=== PATIENT | male | born 1975 | race Caucasian/White ===

== ENCOUNTER 2024-05-11 08:32 | Emergency (ER) | payer OTHER, SELFPAY ==
[2024-05-11 08:38] VITALS: BP 162/102
[2024-05-11 09:49] LABS: % Basophils 0.8 % (0-2); % Eosinophils 3.4 % (0-6); % Immature Granulocytes 1.5 % (0-0.5); % Lymphocytes 25.4 % (20.5-51.1); % Monocytes 8.2 % (1.7-9.3); % Neutrophils 60.7 % (42.2-75.2); Absolute Basophils 0.1 10^3/uL (0-0.2); Absolute Eosinophils 0.3 10^3/uL (0-0.7); Absolute Immature Granulocytes 0.1 10^3/uL (0-0.05); Absolute Monocytes 0.7 10^3/uL (0.1-0.6); Absolute Neutrophils 4.8 10^3/uL (1.4-6.5); Hematocrit 42.1 % (39.0-52.0); Hemoglobin 15.3 g/dL (13.0-18.0); Mean Corp Hgb Conc. 36.3 g/dL (33.0-37.0); Mean Corpuscular Hgb 30.4 pg (27.0-31.0); Mean Corpuscular Volume 83.5 fL (80.0-94.0); Mean Platelet Volume 9.5 fL (7.4-10.4); Nucleated Red Blood Cells % 0 % (-); Platelet Count 283 10^3/uL (130-400); Red Blood Cell Count 5.04 10^6/uL (4.70-6.10); Red Cell Dist. Width 13.3 % (11.5-14.5)
[2024-05-11] MEDS: NSS 1000 IV (09:49)
[2024-05-11] MEDS: ZOFRAN 4 MG IV ×2 (09:50→11:36)
[2024-05-11] MEDS: DILAUDID 0.5 MG IV ×2 (09:50→11:36)
--- NOTE | 2024-05-11 09:57 | ED.GENMED ---
History of Present Illness
<Germaine Vargas PA-C - Last Filed: 05/11/24 18:07>
General
Chief Complaint: Flank Pain
Source: patient
Exam Limitations: none
Time Seen by Provider: 05/11/24 09:17
Nursing documentation reviewed up to this point in time: agreed with
History of Present Illness
History of Present Illness:
48-year-old male with history of kidney stones presenting to the emergency department with acute onset left flank pain about 1.5 hours prior to arrival. He describes a dull ache in his left mid back rating around to his left abdomen. Patient
denies any radiation of pain into his legs. He has had some nausea and a few episodes of vomiting since onset of pain. Patient denies any fever, chills, chest pain, shortness of breath, urinary symptoms, or testicular pain.
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 No known inciting injury or trauma.
Patient states that he has had a few kidney stones in the past none in the past 5 years. He has required stent placement for 1 kidney stone around 1997.
Past History
<Germaine Vargas PA-C - Last Filed: 05/11/24 18:07>
Past History
ED Past Medical History: Other (Kidney stones)
ED Past Surgical History: Urological
Social History
Drug: None
Personal:
Review of Systems
<Germaine Vargas PA-C - Last Filed: 05/11/24 18:07>
Review of Systems
Allergies reviewed?: Yes
All Other Systems: ROS reviewed and negative except as documented in HPI and ROS
Phy Exam
<Germaine Vargas PA-C - Last Filed: 05/11/24 18:07>
Physical Exam
Physical Exam:
Vitals: Hypertensive, otherwise vital signs stable. Afebrile
General: Patient is mild distress due to pain.
Skin: Warm and dry, no rashes or lesions
Head: Normocephalic, atraumatic
Eyes: Sclera nonicteric. EOMs intact. No nystagmus.
Throat: Protecting airway
Neck: Normal ROM, no cervical spine tenderness, no meningismus
Cardiac: Regular rate and rhythm, no murmurs.
Pulm: Normal respiratory effort, no wheezes, rales, rhonchi heard on exam.
Abdomen: Abdomen soft. No abdominal tenderness. No CVA tenderness. No rash
Back: No midline spinal tenderness. No rash. Negative straight leg raise. No ecchymoses of bilateral flank.
Extremities: No evidence of cyanosis or edema. Great distal pulses
Neuro: AAOx3. CN II-XII intact. No focal neurologic deficits. Steady gait. Strength 5 out of 5 in upper and lower extremities. Sensation fully intact.
Psychiatric: Normal affect.
Course
<Germaine Vargas PA-C - Last Filed: 05/11/24 18:07>
Orders/Labs/Results
Orders:
Orders
05/11/24 09:35
Complete Blood Count/With Diff Urgent
Comprehensive Metabolic Panel Urgent
05/11/24 09:43
0.9% Sodium Chloride 1000 ml [Nss] 1,000 ml IV BOLUS
HYDROmorphone [Dilaudid] 0.5 mg IV NOW STA
Ondansetron Injectable [Zofran] 4 mg IV NOW STA
05/11/24 09:44
CT Abd/pel Without Iv Or Oral Urgent
Comment: hx kidney stones
Reason For Exam: acute onset left flank pain, +N
05/11/24 10:07
Ketorolac [Toradol] 15 mg IV NOW STA
05/11/24 10:11
Urinalysis Reflex To Culture Urgent
Date Specimen was Collected: 05/11/24
Time Specimen was Collected: 08:39
Urine Microscopic Reflex Cult Urgent
05/11/24 11:15
Vital Signs- Treatment ONCE
Frequency: Once
05/11/24 11:29
HYDROmorphone [Dilaudid] 0.5 mg IV NOW STA
Ondansetron Injectable [Zofran] 4 mg IV NOW STA
Abnormal Lab Results
05/11/24 05/11/24
09:35 10:11
Abs Immat Gran (auto) 0.1 H 10^3/uL
(0-0.05)
Absolute Monos (auto) 0.7 H 10^3/uL
(0.1-0.6)
Immature Gran % 1.5 H %
(0-0.5)
Glucose 156 H mg/dl
(70-99)
Calcium 10.3 H mg/dl
(8.4-10.2)
ALT 52 H U/L
(0-50)
Ur Occult Blood Reflex 4+ A
(Negative)
Leukocyte Esterase Rfl Trace A
(Negative)
Urine RBC 30-40 A /HPF
(0-2)
Urine Bacteria (Reflex) Few A
(Negative)
05/11/24 09:35
05/11/24 09:35
Vital Signs
Initial and Last Documented VS:
Initial Vital Signs
Temp Pulse Resp BP Pulse Ox
97.9 F 80 17 162/102 96
05/11/24 08:38 05/11/24 08:38 05/11/24 08:38 05/11/24 08:38 05/11/24 08:38
Last Documented Vital Signs
Temp Pulse Resp BP Pulse Ox
97.9 F 72 16 135/70 97
05/11/24 08:38 05/11/24 13:04 05/11/24 13:04 05/11/24 13:04 05/11/24 13:04
<Erich Guidry, DO - Last Filed: 05/11/24 11:28>
Orders/Labs/Results
Orders:
Orders
05/11/24 09:35
Complete Blood Count/With Diff Urgent
Comprehensive Metabolic Panel Urgent
05/11/24 09:43
0.9% Sodium Chloride 1000 ml [Nss] 1,000 ml IV BOLUS
HYDROmorphone [Dilaudid] 0.5 mg IV NOW STA
Ondansetron Injectable [Zofran] 4 mg IV NOW STA
05/11/24 09:44
CT Abd/pel Without Iv Or Oral Urgent
Comment: hx kidney stones
Reason For Exam: acute onset left flank pain, +N
05/11/24 10:07
Ketorolac [Toradol] 15 mg IV NOW STA
05/11/24 10:11
Urinalysis Reflex To Culture Urgent
Date Specimen was Collected: 05/11/24
Time Specimen was Collected: 08:39
Urine Microscopic Reflex Cult Urgent
05/11/24 11:15
Vital Signs- Treatment ONCE
Frequency: Once
05/11/24 11:29
HYDROmorphone [Dilaudid] 0.5 mg IV NOW STA
Ondansetron Injectable [Zofran] 4 mg IV NOW STA
Abnormal Lab Results
05/11/24 05/11/24
09:35 10:11
Abs Immat Gran (auto) 0.1 H 10^3/uL
(0-0.05)
Absolute Monos (auto) 0.7 H 10^3/uL
(0.1-0.6)
Immature Gran % 1.5 H %
(0-0.5)
Glucose 156 H mg/dl
(70-99)
Calcium 10.3 H mg/dl
(8.4-10.2)
ALT 52 H U/L
(0-50)
Ur Occult Blood Reflex 4+ A
(Negative)
Leukocyte Esterase Rfl Trace A
(Negative)
Urine RBC 30-40 A /HPF
(0-2)
Urine Bacteria (Reflex) Few A
(Negative)
05/11/24 09:35
05/11/24 09:35
Vital Signs
Initial and Last Documented VS:
Initial Vital Signs
Temp Pulse Resp BP Pulse Ox
97.9 F 80 17 162/102 96
05/11/24 08:38 05/11/24 08:38 05/11/24 08:38 05/11/24 08:38 05/11/24 08:38
Last Documented Vital Signs
Temp Pulse Resp BP Pulse Ox
97.9 F 72 16 135/70 97
05/11/24 08:38 05/11/24 13:04 05/11/24 13:04 05/11/24 13:04 05/11/24 13:04
<Germaine Vargas PA-C - Last Filed: 05/11/24 18:07>
MDM/Problems Addressed
Differential Diagnosis Includes:
Not limited to: Kidney stone, UTI, pyelonephritis, diverticulitis, muscular strain, zoster
MDM/Problems Addressed:
48-year-old male with history of kidney stones presenting with acute onset left flank pain earlier today. No known inciting injury or traumatic event. Mild associated nausea and vomiting. No fevers, chills, urinary symptoms. Patient hypertensive
on arrival likely due to significant discomfort. Otherwise his vital signs are stable. He is afebrile. Physical exam as above. Patient is in significant discomfort due to pain, hunched over. No reproducible tenderness to back, no CVA tenderness
or overlying rash, ecchymoses, or erythema. Does not appear to be musculoskeletal in origin. He has a negative straight leg raise bilaterally. Abdomen is soft and nontender. Heart regular rate and rhythm. Lungs clear bilaterally. Symptoms most
consistent with likely renal colic. Will treat patient's pain, check basic labs urine and get dry CAT scan of abdomen/pelvis. Will closely monitor and reassess.
Labs noted. No clinically significant abnormalities. Urine is positive for blood, although appears not infected. CT report reviewed. No evidence of obstructing calculi bilaterally. No evidence of left sided ureteral calculus or hydroureter.
There are nonobstructing large renal calculi noted in the right UPJ which is not consistent with patient's symptoms. Did discuss case with urology, Dr. Maxwell who reviewed patient's CT scan and confirms findings on report. No evidence of acute
left-sided pathology although stones noted in right UPJ will require urgent follow-up.
Patient's pain relatively well-controlled in emergency department. Symptoms most consistent with a renal colic of the left side�unsure if patient may have potentially passed stone. Do not suspect MSK origin. No evidence of rash suggest shingles.
Patient in no apparent respiratory distress to suggest cardio/pulmonary process. Vital signs remained stable. No indication for admission at this time. Will discharge patient with pain control and prompt follow-up with urology for right you UPJ
stone. Return precautions discussed with patient at length. Did speak with Dr. Maxwell who will see him in office by end of week. Patient seen and evaluate by attending physician, as well. Stable for discharge with pain control,, urology
follow-up
Chronic conditions affecting care:
History of kidney stone
Acute Exacerbation and/or Progression of Chronic Illness:
Renal colic
<Germaine Vargas PA-C - Last Filed: 05/11/24 18:07>
*Radiology
Radiology exam reviewed: preliminary read by ED provider and radiology read reviewed
*Pulse Oximetry
Patient hypoxic: no
*EKG
Interpreted by ED Provider?: NA
*County Surveyor Interpretation
Rate: County Surveyor- N/A
*Critical Care Note
Total Time (30-74mins, 75-104mins- exclusive of procedures): Not Applicable
<Germaine Vargas PA-C - Last Filed: 05/11/24 18:07>
Patient Management
Discussion with other providers: Or Manager (Urology-Dr. Maxwell)
ED Attending Note
<Germaine Vargas PA-C - Last Filed: 05/11/24 18:07>
-
Portions of this chart may have been created with voice recognition software.� Occasional wrong word or��sound alike� substitutions may have occurred due to the inherent limitations of voice recognition software.
<Erich Guidry DO - Last Filed: 05/11/24 11:28>
ED Attending Note
Patient seen and examined by attending physician: Yes
I performed the substantive portion of visit, reviewed & personally made and approve the management plan that is documented in note by myself or HILDA.: Yes
Discharge Plan
Departure
Patient Disposition: Home (Routine Discharge)
Date of Disposition: 05/11/24
Time of Disposition: 13:06
Patient with high blood pressure during this ER visit?: Yes
Condition: Good
Covid-19: Not Applicable
Discharge Problem:
Renal colic
Instructions: Kidney Stones (DC), Flank Pain (DC), BLOOD PRESSURE
Prescriptions:
New
oxycodone 5 mg tablet
5 mg PO Q6H PRN (Reason: Pain) Qty: 10 0RF
ondansetron 4 mg tablet,disintegrating
4 mg PO Q8H PRN (Reason: nausea and vomiting) Qty: 10 0RF
tamsulosin [Flomax] 0.4 mg capsule
0.4 mg PO DAILY Qty: 14 0RF
No Action
oxycodone-acetaminophen 5 MG/325 MG tablet
2 tab PO Q6HPRN PRN (Reason: pain) Qty: 30 0RF
indomethacin 75 MG capsule, extended release
75 mg PO DAILY Qty: 20 0RF
Rx Instructions:
Please take with food
Referrals:
Orlando,Concha, PA [Family Provider] -
Hermes Maxwell Jr., MD [Active] - Next open appointment
Activity Restrictions/Additional Instructions:
-RETURN TO THE EMERGENCY DEPARTMENT WITH ANY FEVERS, CHILLS, SEVERE ABDOMINAL/BACK PAIN, INTRACTABLE NAUSEA/VOMITING, SHORTNESS OF BREATH/CHEST PAIN, WORSENING IN CURRENT SYMPTOMS, OR ANY OTHER CONCERNS
-You should take 600 mg of ibuprofen every 6-8 hours as needed for pain. For very severe pain�you can take oxycodone. This will cause drowsiness you should not take prior to driving. You can take Tylenol as needed, as well.
-Is important stay well-hydrated. You should strain your urine.
-As discussed�it is very importantly follow-up with urology. You should contact Dr. Maxwell today when you leave the hospital to arrange follow-up in his office later this week.
-Your prescriptions have been to the pharmacy.
Monitor your symptoms closely and return to the emergency department any acute worsening/new symptoms or any signs of infection.
Interventions
Interventions:
*General Assessment Last Done: 05/11/24 13:45
*Nursing Disposition Last Done: 05/11/24 13:45
OC-Rndhav-Xgydhgygss Assessment Last Done: 05/11/24 09:30
ED-Male Genitourinary Assessment Last Done: 05/11/24 09:56
Discharge Date and Time
Discharge Date/Time: 05/11/24 13:45
Print Language: NIUEAN
[2024-05-11 10:09] LABS: ALT (SGPT) 52 U/L (0-50); AST (SGOT) 52 U/L (17-59); Albumin 4.9 g/dl (3.5-5.0); Alkaline Phosphatase 83 U/L (38-126); Blood Urea Nitrogen 18 mg/dl (9-20); Calcium 10.3 mg/dl (8.4-10.2); Carbon Dioxide 24 mmol/L (22-30); Chloride 105 mmol/L (98-107); Glucose 156 mg/dl (70-99); Potassium 4.6 mmol/L (3.5-5.1); Sodium 140 mmol/L (135-145); Total Bilirubin 0.7 mg/dl (0.2-1.3); Total Protein 7.5 g/dl (6.3-8.2); eGFR > 60.00
[2024-05-11] MEDS: TORADOL 15 MG IV (10:12)
[2024-05-11 10:50] LABS: Urine Albumin Trace (Neg - Trace); Urine Bilirubin Negative (Negative); Urine Character Clear (Clear); Urine Color Yellow; Urine Glucose Negative (Negative); Urine Ketone Negative (Negative); Urine Leukocyte Trace (Negative); Urine Nitrite Negative (Negative); Urine Occult Blood 4+ (Negative); Urine Urobilinogen Negative (Neg - 1+)
[2024-05-11 11:35] VITALS: BP 138/91
[2024-05-11 11:51] LABS: Urine Bacteria Few (Negative); Urine Red Blood Cell 30-40 /HPF (0-2)
[2024-05-11 13:04] VITALS: BP 135/70
== END 2024-05-11 13:45 | disposition home or self-care (01) ==
LOC: EMR 08:32
PROVIDERS: EMERGENCY PHYSICIAN Emergency Medicine; FAMILY PHYSICIAN Physician Assistant Medical
DX: N20.0 Calculus of kidney (principal); Z87.442 Personal history of urinary calculi; Z91.048 Other nonmedicinal substance allergy status
CPT/HCPCS: 99284; 96374; 96375 ×2; 96361; 96376 ×2; 74176; 80053; 81003; 81015; 85025

== ENCOUNTER 2024-05-25 01:30 | Inpatient (IN) | payer OTHER, SELFPAY ==
[2024-05-24 19:06] VITALS: BP 172/99
[2024-05-24] MEDS: MORPHINE SULFATE 4 MG IV (21:33)
[2024-05-24 21:39] LABS: % Basophils 0.6 % (0-2); % Eosinophils 1.7 % (0-6); % Immature Granulocytes 0.6 % (0-0.5); % Lymphocytes 10.7 % (20.5-51.1); % Monocytes 6.2 % (1.7-9.3); % Neutrophils 80.2 % (42.2-75.2); Absolute Basophils 0.1 10^3/uL (0-0.2); Absolute Eosinophils 0.2 10^3/uL (0-0.7); Absolute Immature Granulocytes 0.1 10^3/uL (0-0.05); Absolute Lymphocytes 1.2 10^3/uL (1.2-3.4); Absolute Monocytes 0.7 10^3/uL (0.1-0.6); Absolute Neutrophils 9.3 10^3/uL (1.4-6.5); Hemoglobin 14.6 g/dL (13.0-18.0); Mean Corp Hgb Conc. 36.5 g/dL (33.0-37.0); Mean Corpuscular Hgb 29.9 pg (27.0-31.0); Mean Corpuscular Volume 81.8 fL (80.0-94.0); Mean Platelet Volume 9.3 fL (7.4-10.4); Nucleated Red Blood Cells % 0 % (-); Platelet Count 274 10^3/uL (130-400); Red Blood Cell Count 4.89 10^6/uL (4.70-6.10); White Blood Cell Count 11.6 10^3/uL (4.8-10.8)
[2024-05-24] MEDS: TORADOL 15 MG IV (22:13)
[2024-05-24 22:21] LABS: ALT (SGPT) 39 U/L (0-50); AST (SGOT) 36 U/L (17-59); Albumin 4.3 g/dl (3.5-5.0); Alkaline Phosphatase 69 U/L (38-126); Blood Urea Nitrogen 19 mg/dl (9-20); Calcium 8.9 mg/dl (8.4-10.2); Carbon Dioxide 24 mmol/L (22-30); Chloride 106 mmol/L (98-107); Glucose 168 mg/dl (70-99); Potassium 4.4 mmol/L (3.5-5.1); Sodium 141 mmol/L (135-145); Total Bilirubin 0.7 mg/dl (0.2-1.3); Total Protein 6.9 g/dl (6.3-8.2); eGFR > 60.00
[2024-05-24 22:28] LABS: Urine Albumin Trace (Neg - Trace); Urine Bilirubin Negative (Negative); Urine Character Clear (Clear); Urine Color Yellow; Urine Glucose Negative (Negative); Urine Ketone Negative (Negative); Urine Leukocyte Negative (Negative); Urine Nitrite Negative (Negative); Urine Occult Blood 3+ (Negative); Urine Specific Gravity 1.025 (<1.030); Urine Urobilinogen Negative (Neg - 1+)
[2024-05-24 22:37] LABS: Urine Squamous Cell 0-2 /LPF (Few)
[2024-05-24 22:40] LABS: Urine Uric Acid Crystals Present; Urine White Cell 0-2 /HPF (0-5)
[2024-05-24 22:41] LABS: Urine Bacteria Moderate (Negative)
[2024-05-24 22:55] VITALS: BP 143/79
[2024-05-24 22:56] VITALS: BMI 36.6
--- NOTE | 2024-05-24 23:10 | ED.GENMED ---
History of Present Illness
General
Chief Complaint: Flank Pain
Time Seen by Provider: 05/24/24 21:16
History of Present Illness
History of Present Illness:
48-year-old male with prior history of kidney stones presenting to the emergency department for right-sided flank pain. Patient notes that he was seen in the hospital about on 05/11 for left-sided flank pain, suspected to have passed a kidney stone.
Imaging was obtained which showed a 1.2 cm stone in his right renal pelvis. He subsequently followed up with urology, and given size, is scheduled for lithotripsy in [address] Maxwell. Prior to arrival, patient had acute onset of right-sided
flank pain with radiation to his abdomen. He had previously not been having any pain. He denies any changes in urination. He denies any fever. He did not take any medications for pain prior to arrival. He denies additional acute medical
complaints
Past History
Past History
ED Past Medical History: Other (Kidney stones)
ED Past Surgical History: Urological
Social History
Drug: None
Personal:
Phy Exam
Physical Exam
Physical Exam:
General: Well-appearing, no clinical signs of dehydration, nontoxic and in no acute distress
HEENT: protecting airway
Neck: appears supple
CV: Normal heart rate, regular rhythm
Resp: No accessory muscle use, no increased work of breathing, lungs clear to auscultation bilaterally
Abd: Soft and non-distended, no tenderness to palpation, right CVA tenderness
Extremities: No deformities, no swelling
Neuro: alert, no focal neurologic deficit
: deferred
Rectal: deferred
Psych: Normal affect
Skin: Intact
Course
Orders/Labs/Results
Orders:
Orders
05/24/24 21:24
Morphine Sulfate 4 mg IV NOW STA
05/24/24 21:34
Complete Blood Count/With Diff Urgent
Comprehensive Metabolic Panel Urgent
05/24/24 21:57
CT Abd/pel Without Iv Or Oral Urgent
Comment:
Reason For Exam: R-flank pain, known renal stone
05/24/24 22:06
Ketorolac [Toradol] 15 mg IV NOW STA
05/24/24 22:16
Urinalysis Reflex To Culture Urgent
Date Specimen was Collected: 05/24/24
Time Specimen was Collected: 22:15
Urine Microscopic Reflex Cult Urgent
Urine Culture Urgent
PRASANNA Source: U
Specimen Description:
Date Specimen was Collected: 05/24/24
Time Specimen was Collected: 22:15
05/24/24 23:45
HYDROmorphone [Dilaudid] 1 mg IV NOW STA
Abnormal Lab Results
05/24/24 05/24/24
21:34 22:16
WBC 11.6 H 10^3/uL
(4.8-10.8)
Abs Immat Gran (auto) 0.1 H 10^3/uL
(0-0.05)
Absolute Neuts (auto) 9.3 H 10^3/uL
(1.4-6.5)
Absolute Monos (auto) 0.7 H 10^3/uL
(0.1-0.6)
Immature Gran % 0.6 H %
(0-0.5)
Neutrophils % 80.2 H %
(42.2-75.2)
Lymphocytes % 10.7 L %
(20.5-51.1)
Glucose 168 H mg/dl
(70-99)
Ur Occult Blood Reflex 3+ A
(Negative)
Urine RBC 7-10 A /HPF
(0-2)
Urine Bacteria (Reflex) Moderate A
(Negative)
05/24/24 21:34
05/24/24 21:34
Vital Signs
Initial and Last Documented VS:
Initial Vital Signs
Temp Pulse Resp BP Pulse Ox
97.6 F 61 19 172/99 96
05/24/24 19:06 05/24/24 19:06 05/24/24 19:06 05/24/24 19:06 05/24/24 19:06
Last Documented Vital Signs
Temp Pulse Resp BP Pulse Ox
97.6 F 71 14 143/79 97
05/24/24 19:06 05/24/24 22:55 05/24/24 22:55 05/24/24 22:55 05/24/24 22:55
MDM/Problems Addressed
MDM/Problems Addressed:
48-year-old male with known history of kidney stones presenting for right-sided flank pain, acute onset. Vital signs on arrival are significant for hypertension which improved without intervention.
On exam, patient is in no acute distress, slightly uncomfortable secondary to pain. On review of EMR, patient had CT imaging on the , consistent with a 1.2 cm stone in the right renal pelvis. Given this information, suspect that stone is
moving, which is likely source of patient's pain. Will try to control patient's pain, screen with laboratory analysis and urinalysis to ensure no infectious concerns. Will also obtain imaging to evaluate location of stone and degree of
hydronephrosis.
23:45 -patient's urine without significant sign of infection. Mild leukocytosis. CT is consistent with a 12 mm stone which is now traveling down the ureter. Patient's pain is persistent despite multiple pain medications. For this reason we will
admit for pain control and urologic consultation.
*Critical Care Note
Total Time (30-74mins, 75-104mins- exclusive of procedures): Not Applicable
ED Attending Note
-
Portions of this chart may have been created with voice recognition software.� Occasional wrong word or��sound alike� substitutions may have occurred due to the inherent limitations of voice recognition software.
Discharge Plan
Departure
Prescriptions:
No Action
No Current Medications
0
Referrals:
Arsh Stapleton, [Family Provider] -
Interventions
Interventions:
*Risk Screen - Suicide Last Done: 05/24/24 19:06
*General Assessment Last Done: 05/24/24 19:06
*Neglect/Abuse Screening Last Done: 05/24/24 19:06
*ED COVID-19 Vaccine History Last Done: 05/24/24 19:06
VZ-Hlvyhd-Mdaxcruftw Assessment Last Done: 05/24/24 20:50
ED-Male Genitourinary Assessment Last Done: 05/24/24 20:50
Discharge Date and Time
Print Language: JAPANESE
[2024-05-24] MEDS: DILAUDID 1 MG IV (23:50)
[2024-05-25] VITALS (18 sets, daily range): BP systolic 105–147; BP diastolic 60–94; BMI 36.6
--- NOTE | 2024-05-25 00:54 | HPS.HSE ---
Family Physician
-
Family Physician: Arsh Stapleton
Chief Complaint
-
R Flank Pain
History of Present Illness
Patient is a 48y M with PMH significant for nephrolithiasis who presents to ED complaining of R flank pain. Patient was seen here in the ED about 2 weeks ago with LEFT flank pain. evaluation at that time showed R kidney stone and patient
followed up with urology as an outpatient. He was scheduled for cysto / stent on of this week. Today, he noted onset of severe R flank pain with radiation into the R groin. He had nausea but no emesis. No fevers / chills.
Patient reports prior episode of ureteral stone / sepsis in the . He required cysto / stent at that time.
Medical History
Past Medical History
Past Medical History: Reports Other
Additional Past Medical History:
Kidney Stones
Past Surgical History: Reports Other
Additional Past Surgical History:
Cysto / Stent
Left Ankle ORIF with Hardware
Social History
Tobacco: Non-smoker
Alcohol: None
Drug: None
Family History
Family History: Not pertinent
Allergies / Home Medications
Allergies reflects when Allergies were last updated in [facility].
Home Medications with original date entered in [facility]
Allergy/Medication List:
Allergies
Allergy/AdvReac Type Severity Reaction Status Date / Time
grass pollen-[place], Allergy Unknown Verified 05/24/24 19:06
standard
[Grass Pollen-[place],
Standard]
Home Medications
No Meds [No Current Medications] 05/23/24
Review of Systems
-
History Source: Patient
A 12 point ROS was completed and negative except as noted: Yes
Constitutional: Denies Fever, Fatigue or Chills
Respiratory: Denies Cough or Trouble Breathing
Cardiac: Denies Chest Pain or Palpitations
Abdomen/GI: Reports Nausea; Denies Abdominal Pain, Vomiting, Diarrhea or Constipated
: Reports Flank Pain; Denies Dysuria, Frequency or Bleeding
Musculoskeletal: Denies Edema
Neurological: Denies Dizzy or Headache
Physical Exam
Vital Signs
Vital Signs
Temp Pulse Resp BP Pulse Ox
97.6 F 71 14 143/79 97
05/24/24 19:06 05/24/24 22:55 05/24/24 22:55 05/24/24 22:55 05/24/24 22:55
Physical Exam
General: Other (48y M in no acute distress.)
HEENT: Moist mucous membranes and PERRLA
Respiratory: Clear; No Wheezes, Rales or Rhonchi
Cardiac: S1/S2 and Regular Rhythm; No Murmur
GI: Soft, Non Distended, Normal Bowel Sounds and Other (Mild R abdominal tenderness. No rebound / guarding.)
Musculoskeletal: No Clubbing, No Cyanosis and No Edema
Neuro: AO x 3
Laboratory Results
-
05/24/24 21:34
05/24/24 21:34
Laboratory Results
Total Bilirubin 0.7 mg/dl (0.2-1.3) 05/24/24 21:34
AST 36 U/L (17-59) 05/24/24 21:34
ALT 39 U/L (0-50) 05/24/24 21:34
Alkaline Phosphatase 69 U/L (38-126) 05/24/24 21:34
Impression/Plan
-
A/P: Patient is a 48y M with PMH significant for nephrolithiasis who presents to ED c/o severe R flank pain and known R ureteral stone.
Obstructing Right Ureteral Stone
- Admit for further evaluation and treatment.
- NPO, IVFs, pain control, tamsulosin, etc.
- Urology consulted for probable cysto / stent in the AM.
- Empiric abx for now pending culture data - though urine does not appear infected and patient is non-toxic.
No chronic health issues / meds / etc.
DVT Prophylaxis: SCDs
Code Status: Full
[2024-05-25] MEDS: DILAUDID 0.5 MG IV ×2 (04:48→08:58)
[2024-05-25] MEDS: NSS 1000 IV ×3 (05:43→20:28)
--- NOTE | 2024-05-25 06:06 | CON.MD ---
Consultation - Medical
-
see dictated note and scanned H+P
pt with known large right renal stone burden
now with intractable right renal colic
no fevers or signs of infx
plan to keep npo and decide on timing of OR- pt is on for tomorrow and this may be as soon as OR allows
reviewed with patient
[2024-05-25] MEDS: TORADOL 15 MG IV ×3 (06:42→20:28)
--- NOTE | 2024-05-25 07:57 | PHANOTE ---
med rec note- patient said he never started the Flomax .04mg daily and prescription pain medication that were filled
[2024-05-25] MEDS: FLOMAX 0.4 MG PO (08:12)
[2024-05-25] MEDS: ROCEPHIN 1000 MG IV (08:13)
[2024-05-25] MEDS: STERILE WATER FOR INJECTION 10 ML IV (08:13)
[2024-05-25] MEDS: TYLENOL 650 MG PO (08:24)
--- NOTE | 2024-05-25 08:45 | W.PN.HOSP.TC ---
Today's Communication/Plan
-
See plan
Assessment / Plan
Assessment / Plan
Impression:
Renal colic with obstructive right ureteral stone.
Afebrile hemodynamically stable with preserved renal function
No clinical evidence of infection
Urology on board with plan for cystoscopy and stent placement.
Continue empiric antibiotics/ceftriaxone.
Continue IV fluids.
Continue analgesic regimen.
Anticipated Discharge: 24 - 48 hours
Subjective/Interval History
-
Date of Service: May 25, 2024
Objective Data
-
Labs:
Laboratory Results
05/24/24
21:34
WBC 11.6 H
Hgb 14.6
Hct 40.0
Plt Count 274
Sodium 141
Potassium 4.4
Chloride 106
Carbon Dioxide 24
BUN 19
Creatinine 1.2
Glucose 168 H
Calcium 8.9
Total Bilirubin 0.7
AST 36
ALT 39
Alkaline Phosphatase 69
Vital Signs:
Vital Signs
Temp Pulse Resp BP Pulse Ox
98.0 F 64 20 141/94 99
05/25/24 08:20 05/25/24 08:20 05/25/24 08:20 05/25/24 08:20 05/25/24 08:20
Physical Exam
-
General: Well Developed and No Apparent Distress
HEENT: Normocephalic, Atraumatic and Moist Mucous Membranes
Respiratory: Clear to Auscultation
Cardiac: Regular Rhythm and S1/S2; Negative Murmur, Rub or Gallop
GI: Soft, Nontender, Nondistended and Normal Bowel Sounds; Negative Organomegaly
Rectal: Deferred by Provider
Musculoskeletal: No Clubbing, No Cyanosis and No Edema
Skin: Negative Rash
Neuro: Nonfocal/Grossly Intact
--- NOTE | 2024-05-25 13:44 | W.IMMPOSTOP ---
Surgical Immed Post Op Note
-
Primary Surgeon:
loy
Assisting Surgeon:
Pre-op Diagnosis:
obstructing right ureteral stone
Post-op Diagnosis:
same
Procedure Performed:
cysto.right retrograde, right ureteral stent
Anesthesia Type:
gen
Specimen / Cultures:
none
Estimated Blood Loss:
1cc
Complications:
none
Operative Findings:
stent placed
observe overnight for fever/pain control/etc
when stable- for discharge and schedule outpt definitive stone procedure
--- NOTE | 2024-05-25 14:33 | SUR.PHASEI ---
patient has urinal propped, urge to void. vss, talkative, Toradol 15mg given IV for slight discomfort/ await med surg bed.
--- NOTE | 2024-05-25 16:38 | PTCARENOTE ---
Received patient from ED via stretcher. AAOx3, ambulated with minimal assistance. Awaiting first void post procedure. Assessed and oriented to room.
[2024-05-25 17:20] LABS: Glucose - Point of Care 159 mg/dl (70-99)
[2024-05-26 03:50] VITALS: BP 142/78
[2024-05-26] MEDS: NSS IV ×2 (05:42→06:13)
--- NOTE | 2024-05-26 06:08 | W.PN.URO.CBU ---
Today's Communication / Plan
-
probable discharge
Assessment / Plan
-
stone
s/p stent
pt stable
if am labs ok- discharge with outpt f/u for definitive stone procedure
Diagnosis
-
Date of Service: May 26, 2024
-
Patient Diagnosis:
stone
intractable colic
Post Op Day:
right ureteral stent 05/25
Subjective
-
pt feels much better
eating/pain controlled
no fevers
Objective
-
Vital Signs
Temp Pulse Resp BP Pulse Ox
97.8 F 60 18 142/78 96
05/26/24 03:50 05/26/24 03:50 05/26/24 03:50 05/26/24 03:50 05/26/24 03:50
Intake and Output
05/24/24 05/25/24 05/26/24
06:59 06:59 06:59
Intake Total 1180 / 1180
Output Total 300 / 300
Balance 880 / 880
Intake:
Oral fluids 530 / 530
IV fluids (Total) 650 / 650
normosol 150 / 150
Output:
Urine, Voided 300 / 300
Review of Systems
-
Constitutional: Fatigue
Respiratory: No Symptoms
Cardiac: No Symptoms
Abdomen/GI: No Symptoms
: Frequency
Physical Exam
-
General - no acute distress
Abdomen - soft, non-tender
[2024-05-26 06:37] LABS: Hematocrit 37.4 % (39.0-52.0); Hemoglobin 13.6 g/dL (13.0-18.0); Mean Corp Hgb Conc. 36.4 g/dL (33.0-37.0); Mean Corpuscular Hgb 30.4 pg (27.0-31.0); Mean Corpuscular Volume 83.5 fL (80.0-94.0); Mean Platelet Volume 9.8 fL (7.4-10.4); Platelet Count 245 10^3/uL (130-400); Red Blood Cell Count 4.48 10^6/uL (4.70-6.10); White Blood Cell Count 12.5 10^3/uL (4.8-10.8)
[2024-05-26 07:22] LABS: Blood Urea Nitrogen 22 mg/dl (9-20); Calcium 8.9 mg/dl (8.4-10.2); Carbon Dioxide 22 mmol/L (22-30); Chloride 106 mmol/L (98-107); Estimated Creatinine Clearance 105 ml/min; Glucose 133 mg/dl (70-99); Potassium 4.9 mmol/L (3.5-5.1); Sodium 139 mmol/L (135-145); eGFR > 60.00
[2024-05-26 07:50] VITALS: BP 129/77
[2024-05-26] MEDS: FLOMAX 0.4 MG PO (08:17)
[2024-05-26] MEDS: ROCEPHIN 1000 MG IV (08:17)
[2024-05-26] MEDS: STERILE WATER FOR INJECTION 10 ML IV (08:17)
--- NOTE | 2024-05-26 11:38 | CM ---
Patient seen bedside, initial assessment completed. Patient resides in a single story home with his and step daughter, one step to enter. Patient denies DME, VN, or SNF history. Patient reports outpatient PT in the past after ankle injury.
Patient PCP Dr. Stapleton, pharmacy [facility] in [place]. Patient confirms prescription coverage through his insurance, denies food, housing/utility, transportation insecurities. Patient denies needs upon discharge. CM will continue to follow for
all discharge planning needs.
Plan; home no needs likely.
--- NOTE | 2024-05-26 12:42 | W.DS.TRANS ---
DC Summary - Surveillance Monitor
-
Discharge Instructions:
Discharge Diagnosis/Procedures you had a right kidney stone and had a right
ureteral stent placed
Diet No restrictions
Activity No restrictions
Driving Restrictions As prior to admission
Bathing Restrictions OK to Shower
Wound Care expect blood in urine, urinary frequency and
some discomfort in kidney and bladder with
urination
Instructions:
Stand-Alone Forms:
Changes to Home Medications: Yes
Discharge Medications:
DC Medications w/original date entered in [facility]
phenazopyridine 100 mg tablet (Pyridium) 100 mg PO BID #60 tabs 05/26/24
tamsulosin 0.4 mg capsule 0.4 mg PO DAILY #30 caps 05/26/24
tramadol 50 mg tablet 50 mg PO Q8H PRN Pain #30 tabs 05/26/24
Home Medication Changes
All of above
Pending Results: No
== END 2024-05-26 13:30 | disposition home or self-care (01) | DRG 661 ==
LOC: 4 EAST ACU 01:30
PROVIDERS: ADMITTING PHYSICIAN Hospitalist; ATTENDING PHYSICIAN Internal Medicine; CONSULT PHYSICIAN Specialist; EMERGENCY PHYSICIAN Student in an Organized Health Care Education/Training Program; FAMILY PHYSICIAN Family Medicine
PROC: 0T768DZ Dilation of Right Ureter with Intraluminal Device, Via Natural or Artificial Opening Endoscopic (ICD-10-PCS; 2024-05-25)
PROC: BT1D1ZZ Fluoroscopy of Right Kidney, Ureter and Bladder using Low Osmolar Contrast (ICD-10-PCS; 2024-05-25)
DX: N13.2 Hydronephrosis with renal and ureteral calculous obstruction (principal)
CPT/HCPCS: 74176; 74420; 76000; 80048; 80053; 81003; 81015; 82962; 85025; 85027; 87086; C1758; C2617

== ENCOUNTER 2024-06-14 06:34 | Day surgery (SDC) | payer OTHER, SELFPAY ==
[2024-06-14] VITALS (13 sets, daily range): BP systolic 117–141; BP diastolic 69–92; BMI 38.4
[2024-06-14] MEDS: NORMOSOL-R/PLASMALYTE-A 1000 IV (10:18)
[2024-06-14] MEDS: Pyridium 200 MG PO (14:40)
[2024-06-14] MEDS: FLOMAX 0.4 MG PO (14:41)
== END 2024-06-14 15:53 | disposition home or self-care (01) ==
LOC: SDS 06:34
PROVIDERS: ATTENDING PHYSICIAN Specialist
DX: N20.0 Calculus of kidney (principal)
CPT/HCPCS: 52356; 74018; 76000; 82365; C1758; C1894; C2617

== ENCOUNTER 2024-06-28 06:26 | Day surgery (SDC) | payer OTHER, SELFPAY ==
[2024-06-28] VITALS (10 sets, daily range): BP systolic 108–134; BP diastolic 51–88; BMI 37.0
[2024-06-28] MEDS: NORMOSOL-R/PLASMALYTE-A 1000 IV (10:56)
--- NOTE | 2024-06-28 14:32 | SUR.PHASEI ---
Report from Radha, pt stable awake, alert, denies c/o, Dr Maxwell in, tristen ice [facility] well
--- NOTE | 2024-06-28 14:47 | SUR.PHASEI ---
Alert, vvs, [facility] well, awaiting SDS
== END 2024-06-28 15:53 | disposition home or self-care (01) ==
LOC: SDS 06:26
PROVIDERS: ATTENDING PHYSICIAN Specialist
DX: N20.0 Calculus of kidney (principal)
CPT/HCPCS: 52356; 74018; 76000; 82365; 93005; C1894; C2617

== ENCOUNTER 2024-08-22 03:56 | Day surgery (SDC) | payer OTHER, SELFPAY ==
[2024-08-22] VITALS (12 sets, daily range): BP systolic 102–150; BP diastolic 55–106; BMI 36.5; BMI 36.4
[2024-08-22] MEDS: NSS 500 IV (04:37)
[2024-08-22] MEDS: DILAUDID 2 MG IV (04:38)
[2024-08-22] MEDS: ZOFRAN 4 MG IV (04:38)
[2024-08-22 04:47] LABS: % Basophils 0.5 % (0-2); % Eosinophils 2.7 % (0-6); % Immature Granulocytes 0.6 % (0-0.5); % Monocytes 7.9 % (1.7-9.3); % Neutrophils 72.3 % (42.2-75.2); Absolute Basophils 0.1 10^3/uL (0-0.2); Absolute Eosinophils 0.3 10^3/uL (0-0.7); Absolute Immature Granulocytes 0.1 10^3/uL (0-0.05); Absolute Lymphocytes 1.8 10^3/uL (1.2-3.4); Absolute Monocytes 0.9 10^3/uL (0.1-0.6); Absolute Neutrophils 8.2 10^3/uL (1.4-6.5); Hematocrit 47.5 % (39.0-52.0); Hemoglobin 16.5 g/dL (13.0-18.0); Mean Corp Hgb Conc. 34.7 g/dL (33.0-37.0); Mean Corpuscular Hgb 29.6 pg (27.0-31.0); Mean Corpuscular Volume 85.3 fL (80.0-94.0); Mean Platelet Volume 9.7 fL (7.4-10.4); Nucleated Red Blood Cells % 0 % (-); Platelet Count 305 10^3/uL (130-400); Red Blood Cell Count 5.57 10^6/uL (4.70-6.10); Red Cell Dist. Width 12.4 % (11.5-14.5); White Blood Cell Count 11.3 10^3/uL (4.8-10.8)
[2024-08-22 05:13] LABS: ALT (SGPT) 28 U/L (0-50); AST (SGOT) 27 U/L (17-59); Alkaline Phosphatase 78 U/L (38-126); Blood Urea Nitrogen 20 mg/dl (9-20); Calcium 10.3 mg/dl (8.4-10.2); Carbon Dioxide 28 mmol/L (22-30); Chloride 104 mmol/L (98-107); Glucose 137 mg/dl (70-99); Potassium 5.4 mmol/L (3.5-5.1); Sodium 145 mmol/L (135-145); Total Bilirubin 0.5 mg/dl (0.2-1.3); eGFR > 60.00
--- NOTE | 2024-08-22 06:00 | ED.GENMED ---
History of Present Illness
<Rodrick Hall, DO - Last Filed: 08/22/24 09:35>
General
Chief Complaint: Flank Pain
Time Seen by Provider: 08/22/24 06:00
<Nimisha Lagos MD, Resident - Last Filed: 08/22/24 09:36>
General
Source: patient
History of Present Illness
History of Present Illness:
This is a 48 year old male patient with PMH of nephrolithiasis who presented to the ED with concerns of left flank pain. He states that he started to feel left flank pain since last night that was intermittent, radiating down to his groin and
associated with intense uncontrollable nausea which prompted him to arrive to the hospital. He denies any fever, chills or abdominal pain.
He previously was admitted in 05/2024 for nephrolithiasis and lithotripsy with stent placement.
Past History
<Rodrick Hall, DO - Last Filed: 08/22/24 09:35>
Past History
ED Past Medical History: Other (Kidney stones)
ED Past Surgical History: Urological
Social History
Drug: None
Personal:
<Nimisha Lagos MD, Resident - Last Filed: 08/22/24 09:36>
Past History
ED Past Surgical History: Orthopedic (Left Ankle ORIF with Hardware)
Social History
Tobacco: Non-smoker
Alcohol: None
Review of Systems
<Nimisha Lagos MD, Resident - Last Filed: 08/22/24 09:36>
Review of Systems
Constitutional: Denies fever or chills
Respiratory: Denies cough
Cardiac: Denies chest pain or palpitations
ABD/GI: Reports nausea; Denies abdominal pain
: Reports flank pain (left)
Phy Exam
<Nimisha Irma Lagos MD, Resident - Last Filed: 08/22/24 09:36>
General Physical Exam
General Presentation: well appearing and mild distress (with left flank pain)
Cardiovascular Exam
Cardiovascular Exam: regular rate/rhythm and no murmur
Heart Sounds: normal
Pulmonary Exam
Pulmonary Exam: lungs clear, no crackles and no wheezing
Gastrointestinal Exam
Gastrointestinal Exam: non tender, soft and non distended
Neurological Exam
Neurological Exam: oriented x3
Musculoskeletal Exam
Musculoskeletal Exam: no edema
Skin Exam
Skin Exam: warm/dry
Psychiatric Exam
Psychiatric Exam: normal mood/affect
Course
<Rodrick Hall, DO - Last Filed: 08/22/24 09:35>
Orders/Labs/Results
Orders:
Orders
08/22/24 04:24
Ondansetron Injectable [Zofran] 4 mg .ROUTE .STK-MED ONE
08/22/24 04:25
HYDROmorphone [Dilaudid] 2 mg .ROUTE .STK-MED ONE
08/22/24 04:36
0.9% Sodium Chloride 500 ml [Nss] 500 ml IV BOLUS
08/22/24 04:37
Ondansetron Injectable [Zofran] 4 mg IV NOW STA
08/22/24 04:38
HYDROmorphone [Dilaudid] 2 mg IV NOW STA
08/22/24 04:42
Complete Blood Count/With Diff Urgent
Comprehensive Metabolic Panel Urgent
08/22/24 04:44
Abdomen/Pelvis wo Contrast CT [CT Abd/pelvis Wo Iv Cont] Urgent
Comment:
Reason For Exam: left flank pain
08/22/24 06:12
Ketorolac [Toradol] 15 mg IV NOW STA
08/22/24 08:24
Admit/Transfer Patient As Directed
Co-Sign Provider:
Level of Care: Observation services
Assign to:: Medical/Surgical
Physician / Group: hospitalist
Diagnosis: nephrolithiasis
Code Status As Directed
Resuscitation Status: Full Code
PRN Pain Medication Management As Directed
May give lesser potent ordered pain med per pt: Yes
preference::
Protocol:: Medication orders for pain may be administered in a
manner that supports deferring to patient preference
when the pt is:
- Requesting an ordered lesser potent pain medication.
Least to most potent pain medications are defined
as: acetaminophen < NSAID < tramadol < opioids
(morphine, oxycodone, hydromorphone).
- Requesting a lesser dose of the same medication IF
ORDERED.
- Requesting a less intrusive route of administration
if both routes are prescribed by the provider (PO <
IV).
08/22/24 08:36
CeFAZolin 2 GRAM [Ancef] 2 grams in 10 ml IV PRE PROCEDURE
08/22/24 09:14
Urinalysis Urgent
Date Specimen was Collected: 08/22/24
Time Specimen was Collected: 04:18
08/22/24 14:31
Potassium Routine
Abnormal Lab Results
08/22/24
04:42
WBC 11.3 H 10^3/uL
(4.8-10.8)
Abs Immat Gran (auto) 0.1 H 10^3/uL
(0-0.05)
Absolute Neuts (auto) 8.2 H 10^3/uL
(1.4-6.5)
Absolute Monos (auto) 0.9 H 10^3/uL
(0.1-0.6)
Immature Gran % 0.6 H %
(0-0.5)
Lymphocytes % 16.0 L %
(20.5-51.1)
Potassium 5.4 H mmol/L
(3.5-5.1)
Glucose 137 H mg/dl
(70-99)
Calcium 10.3 H mg/dl
(8.4-10.2)
08/22/24 04:42
08/22/24 04:42
Vital Signs
Initial and Last Documented VS:
Initial Vital Signs
Temp Pulse Resp BP Pulse Ox
36.6 C 84 26 150/106 98
08/22/24 03:59 08/22/24 03:59 08/22/24 03:59 08/22/24 03:59 08/22/24 03:59
Last Documented Vital Signs
Temp Pulse Resp BP Pulse Ox
36.6 C 80 20 111/83 98
08/22/24 03:59 08/22/24 05:17 08/22/24 05:17 08/22/24 08:00 08/22/24 09:15
<Nimisha Irma Lagos MD, Resident - Last Filed: 08/22/24 09:36>
Orders/Labs/Results
Orders:
Orders
08/22/24 04:24
Ondansetron Injectable [Zofran] 4 mg .ROUTE .STK-MED ONE
08/22/24 04:25
HYDROmorphone [Dilaudid] 2 mg .ROUTE .STK-MED ONE
08/22/24 04:36
0.9% Sodium Chloride 500 ml [Nss] 500 ml IV BOLUS
08/22/24 04:37
Ondansetron Injectable [Zofran] 4 mg IV NOW STA
08/22/24 04:38
HYDROmorphone [Dilaudid] 2 mg IV NOW STA
08/22/24 04:42
Complete Blood Count/With Diff Urgent
Comprehensive Metabolic Panel Urgent
08/22/24 04:44
Abdomen/Pelvis wo Contrast CT [CT Abd/pelvis Wo Iv Cont] Urgent
Comment:
Reason For Exam: left flank pain
08/22/24 06:12
Ketorolac [Toradol] 15 mg IV NOW STA
08/22/24 08:24
Admit/Transfer Patient As Directed
Co-Sign Provider:
Level of Care: Observation services
Assign to:: Medical/Surgical
Physician / Group: hospitalist
Diagnosis: nephrolithiasis
Code Status As Directed
Resuscitation Status: Full Code
PRN Pain Medication Management As Directed
May give lesser potent ordered pain med per pt: Yes
preference::
Protocol:: Medication orders for pain may be administered in a
manner that supports deferring to patient preference
when the pt is:
- Requesting an ordered lesser potent pain medication.
Least to most potent pain medications are defined
as: acetaminophen < NSAID < tramadol < opioids
(morphine, oxycodone, hydromorphone).
- Requesting a lesser dose of the same medication IF
ORDERED.
- Requesting a less intrusive route of administration
if both routes are prescribed by the provider (PO <
IV).
08/22/24 08:36
CeFAZolin 2 GRAM [Ancef] 2 grams in 10 ml IV PRE PROCEDURE
08/22/24 09:14
Urinalysis Urgent
Date Specimen was Collected: 08/22/24
Time Specimen was Collected: 04:18
08/22/24 14:31
Potassium Routine
Abnormal Lab Results
08/22/24
04:42
WBC 11.3 H 10^3/uL
(4.8-10.8)
Abs Immat Gran (auto) 0.1 H 10^3/uL
(0-0.05)
Absolute Neuts (auto) 8.2 H 10^3/uL
(1.4-6.5)
Absolute Monos (auto) 0.9 H 10^3/uL
(0.1-0.6)
Immature Gran % 0.6 H %
(0-0.5)
Lymphocytes % 16.0 L %
(20.5-51.1)
Potassium 5.4 H mmol/L
(3.5-5.1)
Glucose 137 H mg/dl
(70-99)
Calcium 10.3 H mg/dl
(8.4-10.2)
08/22/24 04:42
08/22/24 04:42
Vital Signs
Initial and Last Documented VS:
Initial Vital Signs
Temp Pulse Resp BP Pulse Ox
36.6 C 84 26 150/106 98
08/22/24 03:59 08/22/24 03:59 08/22/24 03:59 08/22/24 03:59 08/22/24 03:59
Last Documented Vital Signs
Temp Pulse Resp BP Pulse Ox
36.6 C 80 20 111/83 98
08/22/24 03:59 08/22/24 05:17 08/22/24 05:17 08/22/24 08:00 08/22/24 09:15
<Nimisha Lagos MD, Resident - Last Filed: 08/22/24 09:36>
*Critical Care Note
Total Time (30-74mins, 75-104mins- exclusive of procedures): Not Applicable
<Nimisha Lagos MD, Resident - Last Filed: 08/22/24 09:36>
Update Note
Update Note:
CBC with mildly elevated WBC count. CT abd showed 3mm obstructing stone with left hydronephrosis. Patient given dilaudid and Toradol for pain management. Consulted urology and patient will be admitted to the hospitalist service and taken to the OR
today.
ED Attending Note
<Rodrick Hall, DO - Last Filed: 08/22/24 09:35>
ED Attending Note
Patient seen and examined by attending physician: Yes
I performed a history and physical exam of patient and discussed management with resident, I reviewed resident's note and agree with documented findings and plan of care.: Yes
ED Attending Note:
I evaluated the patient bedside. The patient remains to appear somewhat uncomfortable relieving Dilaudid. We also gave Toradol. I also discussed case with urology who is planning on taking patient to the OR around noon today and recommends
admission to medicine. White count slightly elevated 11.3, CT imaging reviewed. I also reviewed old records including operative report from a few months ago.
-
Portions of this chart may have been created with voice recognition software.� Occasional wrong word or��sound alike� substitutions may have occurred due to the inherent limitations of voice recognition software.
Discharge Plan
Departure
Patient Disposition: Admit
Date of Disposition: 08/22/24
Time of Disposition: 07:04
Admit to: Med/Surg
Presentation/result/management discussed w/ accepting MD/DO: Hospitalist
Patient with high blood pressure during this ER visit?: No
Discharge Problem:
Ureterolithiasis
Interventions
Interventions:
*Risk Screen - Suicide Last Done: 08/22/24 03:59
*General Assessment Last Done: 08/22/24 06:52
*Neglect/Abuse Screening Last Done: 08/22/24 03:59
ED- Fall Risk Assessment Last Done: 08/22/24 04:25
*ED COVID-19 Vaccine History Last Done: 08/22/24 04:25
[facility]knz[facility] Assessment Last Done: 08/22/24 04:25
ED-Male Genitourinary Assessment Last Done: 08/22/24 04:25
[2024-08-22] MEDS: TORADOL 15 MG IV (06:26)
--- NOTE | 2024-08-22 08:04 | HPS.HSE ---
Family Physician
-
Family Physician: Bishop Sheehan
Chief Complaint
-
Flank pain
History of Present Illness
48-year-old male presented to the hospital with left flank pain
Medical History
Past Medical History
Past Medical History: Reports Other
Additional Past Medical History:
Nephrolithiasis
Past Surgical History: Reports Other
Additional Past Surgical History:
Multiple procedures for nephrolithiasis, left ankle ORIF
Social History
Tobacco: Non-smoker
Alcohol: None
Drug: None
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
Family History
Family History: Adopted
Allergies / Home Medications
Allergies reflects when Allergies were last updated in [facility].
Home Medications with original date entered in [facility]
Allergy/Medication List:
Allergies
Allergy/AdvReac Type Severity Reaction Status Date / Time
grass pollen-[place], Allergy Unknown Verified 08/22/24 04:01
standard
[Grass Pollen-[place],
Standard]
Home Medications
No Meds [No Current Medications] 06/28/24
Review of Systems
-
Constitutional: Denies Fever
Abdomen/GI: Reports Abdominal Pain (left side) and Nausea
Physical Exam
Vital Signs
Vital Signs
Temp Pulse Resp BP Pulse Ox
98 F 80 20 111/83 97
08/22/24 03:59 08/22/24 05:17 08/22/24 05:17 08/22/24 08:00 08/22/24 08:00
Physical Exam
General: No Apparent Distress
Respiratory: Clear
Cardiac: S1/S2 and Regular Rhythm
GI: Soft and Tender (mild left sided discomfort)
Neuro: AO x 3 and Nonfocal/grossly intact
Laboratory Results
-
08/22/24 04:42
08/22/24 04:42
Laboratory Results
Total Bilirubin 0.5 mg/dl (0.2-1.3) 08/22/24 04:42
AST 27 U/L (17-59) 08/22/24 04:42
ALT 28 U/L (0-50) 08/22/24 04:42
Alkaline Phosphatase 78 U/L (38-126) 08/22/24 04:42
Impression/Plan
-
IMPRESSION/PLAN:
CT abdomen and pelvis-mild left hydro nephrosis and hydroureter 3 mm calculus at the left UV junction several additional calculi in the left intrarenal collecting system including 8 mm calculus within the pelvis.
# Nephrolithiasis-symptomatic mild hydronephrosis
Urology planning 4 OR for cystoscopy
IVF
# Mild hyperkalemia-Rpt later today
# SCDs for DVT prophylaxis
# Full code
--- NOTE | 2024-08-22 08:37 | W.PN.URO.CBU ---
Today's Communication / Plan
-
to op room ancef communications designer [facility] hospitalist dom gave abs
Assessment / Plan
-
8mmleft upj and 3 mm left uvj stone with obstruction for left uretoscppy stent placem,t possib,le extraxction if stable
Diagnosis
-
Date of Service: August 22, 2024
-
Patient Diagnosis:8 mm prox parris with obs and 3 mm left uvj stone
Post Op Day:
Subjective
-
sever e pain
Objective
-
Vital Signs
Temp Pulse Resp BP Pulse Ox
98 F 80 20 111/83 97
08/22/24 03:59 08/22/24 05:17 08/22/24 05:17 08/22/24 08:00 08/22/24 08:00
Laboratory Results
08/22/24 04:42
Review of Systems
-
: Flank Pain
Physical Exam
-
General - well developed, well nourished, no acute distress
Chest - clear bilaterally
Abdomen - soft, non-tender, positive bowel sounds, no CVAT, no incisional pain or distention
Genitalia - normal
Rectal - normal
Skin - warm & dry with no rash
Neuro - AOx3, no motor deficits
Extremities - no clubbing, no cyanosis, no edema
Incision - clean, dry
Dressing - clean, dry, intact
Care Review
Data Reviewed
Discussed with: Hospitalist and Nursing
CT Scan: Image Pers Reviewed
[2024-08-22 10:08] LABS: Urine Albumin Trace (Neg - Trace); Urine Bilirubin Negative (Negative); Urine Character Clear (Clear); Urine Color Yellow; Urine Glucose Negative (Negative); Urine Ketone Negative (Negative); Urine Leukocyte Negative (Negative); Urine Nitrite Negative (Negative); Urine Occult Blood 2+ (Negative); Urine Specific Gravity 1.025 (<1.030); Urine Urobilinogen Negative (Neg - 1+)
[2024-08-22 10:38] LABS: Urine Squamous Cell 0-2 /LPF (Few); Urine White Cell 0-2 /HPF (0-5)
[2024-08-22] MEDS: TORADOL 10 MG IV (11:32)
--- NOTE | 2024-08-22 14:50 | W.IMMPOSTOP ---
Surgical Immed Post Op Note
-
Primary Surgeon: Peffer
Assisting Surgeon: -
Pre-op Diagnosis: L ureteral and renal stones
Post-op Diagnosis: same
Procedure Performed: Cystoscopy, L ureteroscopy, L ureteral stent placement
Anesthesia Type: general
Specimen / Cultures: none
Estimated Blood Loss: none
Complications: none
Operative Findings: Narrow distal L ureter would not permit scope passage
L ureteral stent placed in good position for passive dilation
[2024-08-22] MEDS: NSS 1000 IV (15:19)
--- NOTE | 2024-08-22 16:03 | W.PN.UPDATE ---
Update Note
Progress Note Update
Discussed with urology. No concern for infection urine looked clear. Okay for discharge today. Will need to follow-up for stone removal. Stent placed.
--- NOTE | 2024-08-22 16:03 | PTCARENOTE ---
pt presents from PACU s/p Cystoscopy, L ureteroscopy, L ureteral stent placement. pt AAO*3, Vss, room air. Denies any pain. pt oriented to the room. call park within the reach. Admission worklist on hold as pt to be DC later today. will finish if
pt stays.
--- NOTE | 2024-08-22 16:05 | W.DS.TRANS ---
Addendum entered and electronically signed by Fiona Delaney MD 08/22/24 16:23:
Dictation- [id number]
Original Note:
DC Summary - Director Treasurer
-
Discharge Instructions:
Discharge Diagnosis/Procedures Kidney stone status post cystoscopy and stent
placement
Diet Regular
Driving Restrictions No driving for 24 hours
Instructions:
Stand-Alone Forms:
Changes to Home Medications: Yes
Discharge Medications:
DC Medications w/original date entered in [facility])
ibuprofen 600 mg tablet 600 mg PO TID PRN pain #30 tabs 08/22/24
Home Medication Changes
Pending Results: No
[2024-08-22 17:17] LABS: Potassium 5.3 mmol/L (3.5-5.1)
[2024-08-22] MEDS: LOKELMA 10 GRAM PO (18:15)
== END 2024-08-22 13:14 | disposition home or self-care (01) ==
LOC: EMR 03:56
PROVIDERS: Hospitalist; Student in an Organized Health Care Education/Training Program; ATTENDING PHYSICIAN Emergency Medicine; FAMILY PHYSICIAN Family Medicine
DX: N13.2 Hydronephrosis with renal and ureteral calculous obstruction (principal); E87.5 Hyperkalemia; Z87.442 Personal history of urinary calculi
CPT/HCPCS: 52332; 74018; 74176; 76000; 80053; 81003; 81015; 84132; 85025; A4300; C1758; C1769; C1894; C2617; G0378

== ENCOUNTER 2024-09-09 07:22 | Day surgery (SDC) | payer OTHER, SELFPAY ==
[2024-09-09] VITALS (8 sets, daily range): BP systolic 114–129; BP diastolic 68–80; BMI 34.9
[2024-09-09] MEDS: NORMOSOL-R/PLASMALYTE-A 1000 IV (08:47)
[2024-09-13 17:21] LABS: Stone Analysis Mass 208 mg
== END 2024-09-09 13:22 | disposition home or self-care (01) ==
LOC: SDS 07:22
PROVIDERS: ATTENDING PHYSICIAN Specialist
DX: N20.0 Calculus of kidney (principal)
CPT/HCPCS: 52356; 74018; 76000; 82365; C1894; C2617